=== PATIENT | male | born 2000 ===

== ENCOUNTER 2024-06-09 18:50 | Emergency (ER) | payer SELFPAY ==
[~2024-06-09] VITALS: Wt 54.4 kg
[2024-06-09] MEDS ORDERED: CEPHALEXIN500 M1 PO (20:51)
[2024-06-09] MEDS ORDERED: CEPHALEXIN 500 MG CAP PO ONE (20:55)
== END 2024-06-09 21:05 | disposition home or self-care (01) ==
LOC: ED 18:50
DX: L03.011 Cellulitis of right finger (principal)